=== PATIENT | male | born 1985 | race Caucasian/White ===

== ENCOUNTER 2017-12-27 18:41 | Emergency (ER) | payer SELFPAY ==
--- NOTE | 2017-12-27 20:10 | ERNOTE ---
Date of Service: 12/27/17 Time Seen by Provider: 12/27/17 19:31 Stated Complaint: COUGH, CONGETION, LETHARGIC Presenting Symptoms:: cough Source: patient Exam Limitations: no limitations Immunizations: IMMUNIZATION HX Immunizations Up to Date Yes History of Influenza Vaccine No Hx Pneumococcal Vaccination No Allergies/Adverse Reactions: Allergies No Known Allergies Allergy (Verified 12/27/17 19:08) Home Medications: HOME MEDICATIONS LORazepam [Ativan] 0.5 mg PO TID PRN #7 tab 05/11/15 [Last Taken 05/13/15] hydrOXYzine PAMOATE [Vistaril] 50 mg PO Q4H PRN #30 cap 05/13/15 [Last Taken Unknown] Doxycycline Hyclate [Vibratab] 100 mg PO BID #20 tab 12/27/17 [Last Taken Unknown] - History of Present Ilness Narrative: Pt. comes in with c/o cough for two weeks and nasal congestion, sinus congestion , fatigue, ear pain and malaise. Pt. denies any SOB, CP, NVD, alleviating or aggravating factors. Pt. denies any prehospital treatment. Timing: getting worse Severity: mild Frequency/Possible Cause: Reports: occasional episodes. Denies: smoke exposure Modifying Factors - Improves: Reports: nothing Modifying Factors - Worsens: Reports: nothing Associated Symptoms: Reports: cough, nasal congestion, nasal drainage, earache, sore throat. Denies: chest pain/soreness, shortness of breath, lightheadedness , fever/chills Prior Treatment: Denies: recently seen, treated by physician, recently hospitalized, currently on antibiotics Review of Systems - Review of Systems Constitutional: Present: fatigue, malaise. Absent: recent illness, fever, chills, weakness EYE: Present: no symptoms reported. Absent: eye pain, double vision ENT: Present: ear pain - R, nose congestion, nasal drainage, sore throat Respiratory: Present: cough. Absent: shortness of breath, wheezing Cardiology: Present: no symptoms reported. Absent: chest pain, palpitations, edema Gastrointestinal/Abdominal: Present: no symptoms reported. Absent: nausea, vomiting, diarrhea, abdominal pain Genitourinary: Present: no symptoms reported. Absent: frequency, decreased urinary output Musculoskeletal: Present: no symptoms reported. Absent: back pain, neck pain, joint pain Skin: Present: no symptoms reported. Absent: rash, change in hair/nails Neurological: Present: no symptoms reported. Absent: headache, dizziness/light- headedness, numbness, tingling All Other Systems: All systems neg except as marked - Patient's Past Medical History Patient History - Medical: No pertinent hx Patient History - Cancer: No Hx of Cancer Patient History - Surgical Procedures: No surgical history - Social History Smoking Status: Never smoker Have you smoked in the past 12 months: No Do you dip or chew tobacco: No Alcohol Use: none Drug Use: none - Immunizations Immunizations Up to Date: Yes Hx Pneumococcal Vaccination: No History of Influenza Vaccine: No Physical Exam - Physical Exam General Appearance: Present: wd/wn, alert, no apparent distress Head Exam: Present: normal inspection, no evidence of injury, no tenderness w palpation Eye Exam: Normal inspection: bilateral Ears, Nose, Throat: Present: nasal congestion, sinus pain/drainage, pharyngeal erythema. Absent: abnormal TM (R), abnormal TM (L) Neck: Present: normal inspection, nontender, supple, full range of motion. Absent: lymphadenopathy (R), lymphadenopathy (L) Respiratory: Present: no respiratory distress, no accessory muscle use, chest nontender, wheezing - SAMMY exp. Absent: rales, rhonchi Cardiovascular/Chest: Present: regular rate, rhythm, no murmur, normal peripheral pulses Gastrointestinal/Abdominal: Present: normal bowel sounds, nontender, nondistended, soft, no organomegaly Back Exam: Present: normal inspection Extremity Exam: Present: normal inspection Neurological Exam: Present: alert, oriented, normal mood/affect, no motor/ sensory deficits, qa auditor II-XII nml as tested, normal cerebellar test Skin Exam: Present: normal color, warm/dry. Absent: pallor, skin rash ED Progress - Date and Time Seen: Date and Time: 12/27/17 20:53 As pt. has ahd cough for over 2 weeks feelt aht this needs treated with abx. - Results and Orders Patient's Lab Results:: I have reviewed the patient's lab results. - Vital Signs Patient's Vital Signs:: I have reviewed the patient's vital signs. Vital Signs: Vital Signs 12/27/17 19:05 Temperature 37.9 C H Pulse Rate 65 Respiratory 20 Rate Blood Pressure 130/68 O2 Sat by Pulse 98 Oximetry - X-Ray X-Ray #1 X-Ray: chest Interpretation: Reviewed by me X-ray Comments: Bronchial cuffing - Progress/Reassessment Chief Complaint: Cough Progress:: Improved Departure Clinical Impression: Bronchitis Upper respiratory infection Qualifiers: URI type: unspecified URI Qualified Code(s): J06.9 - Acute upper respiratory infection, unspecified - Departure Disposition: Home self-care Condition: Good Instructions: Acute Bronchitis, [id number] Additional Instructions: Please follow up with primary provider in 2-3 days if not improved. Prescriptions: Doxycycline Hyclate [Vibratab] 100 mg PO BID #20 tab
[2017-12-27] MEDS ORDERED: BENZONATATE 100 MG CAPSULE PO ONE (20:46)
[2017-12-27] MEDS: BENZONATATE 100 MG CAPSULE PO ONE (20:48)
[2017-12-27 21:20] VITALS: BP 142/87
[2017-12-27] MEDS ORDERED: DOXYCYCLINE HYCLATE 100 MG TABLET ONE (21:43)
[2017-12-27] MEDS ORDERED: ALBUTEROL SULFATE 200 PUFF INHALER IH ONE (21:43)
[2017-12-27] MEDS: ALBUTEROL SULFATE 60 PUFF INHALER IH ONE (22:00)
[2017-12-27] MEDS: DOXYCYCLINE HYCLATE 100 MG TABLET PO ONE (22:01)
== END 2017-12-27 21:05 | disposition home or self-care (01) ==
LOC: ER 18:41
DX: J40 Bronchitis, not specified as acute or chronic (principal); J06.9 Acute upper respiratory infection, unspecified